=== PATIENT | male | born 1975 | race Caucasian/White ===

== ENCOUNTER 2021-10-25 16:54 | Emergency (ER) | payer OTHER ==
[2021-10-25 18:55] LABS: BUN/CREATININE RATIO 16 (0-10)
[2021-10-25] MEDS ORDERED: NORVASC10 MG PO (20:20)
[2021-10-25] MEDS ORDERED: LISINOPRIL5 MG PO (20:20)
[2021-10-25 20:44] LABS: HEMOGLOBIN 14.8 gm/dl (14.0-17.5); RED BLOOD COUNT 5.15 M/UL (4.20-5.50); WHITE BLOOD COUNT 6.8 K/UL (4.5-11.0)
== END 2021-10-25 20:47 | disposition home or self-care (01) ==
LOC: ER1 16:54
PROVIDERS: Physician Assistant
DX: I10 Essential (primary) hypertension (principal); Z91.19 Patient's noncompliance with other medical treatment and regimen; Z20.822 Contact with and (suspected) exposure to COVID-19
CPT/HCPCS: 0240U; 71045; 80053; 81001; 82550; 82553; 83605; 84484; 85025; 93005; 99284

== ENCOUNTER 2021-11-02 10:22 | Emergency (ER) | payer OTHER ==
[~2021-11-02 10:22] MED LIST: LISINOPRIL5 MG PO; NORVASC10 MG PO
== END 2021-11-02 11:00 | disposition home or self-care (01) ==
LOC: ER1 10:22
DX: G40.909 Epilepsy, unspecified, not intractable, without status epilepticus (principal); F17.200 Nicotine dependence, unspecified, uncomplicated
CPT/HCPCS: 99284

== ENCOUNTER 2021-11-09 19:24 | Emergency (ER) | payer OTHER ==
[2021-11-09 20:11] LABS: HEMOGLOBIN 15.3 gm/dl (14.0-17.5); RED BLOOD COUNT 5.26 M/UL (4.20-5.50); WHITE BLOOD COUNT 6.5 K/UL (4.5-11.0)
[2021-11-09 20:45] LABS: BUN/CREATININE RATIO 24 (0-10)
[2021-11-10] MEDS ORDERED: PREDNISONE50 MG PO (03:21)
[2021-11-10] MEDS ORDERED: BENZONATATE100 MG PO (03:21)
[2021-11-10] MEDS ORDERED: PROAIR HFA8.5 GM INH (03:21)
== END 2021-11-10 03:40 | disposition home or self-care (01) ==
LOC: ER1 19:24
PROVIDERS: Nurse Practitioner
DX: J20.9 Acute bronchitis, unspecified (principal); I25.2 Old myocardial infarction; E11.9 Type 2 diabetes mellitus without complications; I10 Essential (primary) hypertension; F17.210 Nicotine dependence, cigarettes, uncomplicated; Z20.822 Contact with and (suspected) exposure to COVID-19; Z86.19 Personal history of other infectious and parasitic diseases; Z88.0 Allergy status to penicillin; Z79.899 Other long term (current) drug therapy; Z79.84 Long term (current) use of oral hypoglycemic drugs
CPT/HCPCS: 0240U; 71045; 80053; 81001; 82550; 82553; 84484; 85025; 93005; 94664; 99284